=== PATIENT | female | born 2000 | race Caucasian/White ===

== ENCOUNTER 2024-01-27 18:02 | Outpatient (REF) | payer MEDICAID, SELFPAY ==
[2024-01-28 05:52] LABS: CT PCR NOT DETECTED (Not Detect.); NG PCR NOT DETECTED (Not Detect.)
[2024-01-28 11:16] LABS: Bacterial Vaginosis PCR POSITIVE (Negative); Candida Group PCR NOT DETECTED (Not Detect); Candida glab krusei PCR DETECTED (Not Detect); Trichomonas vaginalis PCR NOT DETECTED (Not Detect)
== END 2024-01-27 18:03 | disposition home or self-care (01) ==
LOC: HO.HHCLNP 18:02
PROVIDERS: Visit Provider Registered Nurse
DX: R30.0 Dysuria (principal)
CPT/HCPCS: 0352U; 87086; 87491; 87591

== ENCOUNTER 2024-09-02 09:09 | Outpatient (REF) | payer MEDICAID, SELFPAY ==
--- NOTE | ~2024-09-02 | US_ITS ---
EXAMINATION: US ABDOMEN HISTORY: RUQ pain TECHNIQUE: Real-time grayscale ultrasound imaging of the abdomen was performed and images were reviewed. COMPARISON: Correlation is made with an unenhanced CT of the abdomen dated 03/15/2014. FINDINGS: Liver: The right lobe of the liver measures 13.5 cm in size. The left lobe of the liver measures 9.8 cm in size. The liver demonstrates normal homogeneous echotexture. No focal mass or intrahepatic biliary ductal dilatation is identified. There is normal hepatopedal flow in the portal vein. Gallbladder and biliary tree: Multiple shadowing calculi are noted in the gallbladder. There is no wall thickening or pericholecystic fluid. There is no sonographic Bermudez sign. The common bile duct is normal in caliber measuring 3 mm. Kidneys: The right kidney measures 10.8 cm in length. The left kidney is 9.4 cm in length. There is limited visualization of the lower pole of the left kidney. The kidneys are otherwise unremarkable, without evidence of masses, hydronephrosis, or calculi. Pancreas: The pancreatic head, neck, and body are unremarkable. The pancreatic tail is obscured by bowel gas. Spleen: The spleen is normal in size and contour, measuring 8.1 cm in length. Abdominal aorta and inferior vena cava: The visualized portions of the abdominal aorta and inferior vena cava are normal in caliber. There is no free fluid in the abdomen. US/US abdomen complete IMPRESSION: Cholelithiasis without evidence of acute cholecystitis. Electronically signed by: James Mendoza MD 09/02/2024 10:14 AM EDT
--- OUTSIDE RECORDS SUMMARY | 2024-09-02 09:50 | XMS_ITS | Clinical Summary ---
Author Organization [employer] [facility] Address [address] [place] [address] Care Team Providers Care Manager Graphic Name Role Phone Kota Noemí DAVIES Primary Care Provider [phone] Allergies Active Allergy Reactions Criticality Noted Date Comments Penicillins Hives 08/04/2022 Medications levonorgestrel-eth inyl estradiol (Aviane) 0.1-20 MG-MCG tabletIndications: Encounter for initial prescription of contraceptive pills Take 1 tablet by mouth Once per day. 28 tablet 12 4 01/27/20 25 Active ibuprofen 600 MG tabletIndications: Crampy pain associated with menses Take 1 tablet (600 mg) by mouth every 6 (six) hours if needed for mild pain. 30 tablet 3 5 Active Active Problems No known active problems Encounters Date Type Department Care Team Description 08/12/2024 Population Health Risk Score [facility] ([facility]) Department [address] [id number] Provider, Population Health Generic 07/13/2024 Orders Only [facility] [address] [place] [address] Noemí Escudero FNP Right upper quadrant abdominal pain (Primary Dx) 07/12/2024 Telephone the grafter Information Management [address] [place] [address] Noemí Escudero FNP 07/08/2024 11:00 AM EST Office Visit [facility] [address] [place] [address] [place], Noemí, LAB CLERK Right upper quadrant abdominal pain (Primary Dx); Crampy pain associated with menses; Proctitis 07/08/2024 Travel 07/01/2024 Telephone [facility] [address] [place] [address] [phone] [place], NoemíKEKE chart prep from Last 3 Months Immunizations Name Administration Dates Next Due Influenza, seasonal, injectable, preservative fr ee 05/02/2022 Social History Tobacco Use Types Packs/Day Years Used Date Smoking Tobacco: Never Smokeless Tobacco: Never Tobacco Cessation:Counseling Given: Not Answered Depression Answer Date Recorded Patient Health Questionnaire-9 Score 0 01/27/2024 Patient Health Questionnaire-9 Score 0 01/27/2024 Last PHQ-9: Questionnaire Data Not on file 0 01/27/2024 Depression Answer Date Recorded Patient Health Questionnaire-2 Score 0 01/27/2024 Comments No Sex and Gender Information Value Date Recorded Sex Assigned at Female 03/31/2022 10:16 AM EDT Legal Sex Female 10:16 AM EDT Gender Identity Female 03/31/2022 10:16 AM EDT Sexual Orientation Don't know 03/31/2022 10 :16 AM EDT Last Filed Vital Signs Vital Sign Reading Time Taken Comments Blood Pressure 128/70 07/08/2024 11:13 AM EST Pulse 92 07/08/2024 11:13 AM EST Temperature 36.6 ??C (97.8 ??F) 07/08/2024 11:[address] Respiratory Rate 18 07/08/2024 11:13 AM EST Oxygen Saturation 98% 08/04/2022 4:48 PM EST Inhaled Oxygen Concentration - - Weight 67 kg (147 lb 12.8 oz) 07/08/2024 11:13 A M EST Height 167.6 cm (5' 6 ) 07/08/2024 11:13 AM EST Body Mass Index 23.86 07/08/2024 11:13 AM EST Plan of Treatment Health Maintenance Due Date Last Done Comments SDOH Screening 1998 Family Planning (PISQ) 2013 HPV Vaccines (1 - 3-dose series) 2013 DTaP/Tdap/Td Vaccines (7 - Td or Tdap) 02/18/2021 02/18/2011, 02/28/2004, 07/18/2000, Additional history exists COVID-19 Vaccine (2 - season) 2024 01/03/2021 Influenza Vaccine (#1) 2024 , 07/06/2017, 06/13/2009 Pap Smear 09/04/2024 09/04/2021 Alcohol/Substance Use Screening 01/26/2025 01/27/2024 Depression Screening 01/26/2025 01/27/2024, 01/27/20 24 Tobacco Screening 07/11/2025 07/11/2024 Zoster Vaccines (1 of 2) 2048 RSV Patients and Patients Aged 60 years or older (1 - 1-dose 75+ series) 2073 Hepatitis B Vaccines Completed 04/04/1999, 01/30/1999, 1998 HIB Vaccines Completed 06/06/2000, 08/1998, 01/30/1999, Additional history exists IPV Vaccines Completed 2002, 08/1998, 01/30/1999, Additional history exists Hepatitis A Vaccines Completed 02/18/2011, 06/13/19 10 HIV Screening Completed 09/06/2021 Hepatitis C Screening Completed 09/06/2021 Meningococcal Vaccine Aged Out No radames jamilah eligible based on patient's age to complete this topic Pneumococcal Vaccine: Pediatrics (0 to 5 Years) and At-Risk Patients (6 to 49) Years) Aged Out No longer eligible based on patient's age to complete this topic RSV under 20 months Aged Out No longe r eligible based on patient's age to complete this topic Rotavirus Vaccines Aged Out No longer eligible based on patient's age to complete this topic Procedures Procedure Name Priority Date/Time Associated Diagnosis Comments ZZZ HISTORICAL HEPATITIS C AB W/REFL TO HCV RNA, QN, PCR Routine 09/06/2021 1:17 PM EDT HIV 1/2 ANTIGEN/ANTIBODY, FOURTH GENERATION W/RFL Routine 09/06/2021 1:17 PM EDT [facility] PAP Routine 09/04/2021 10:38 AM EDT from Last 3 Months or Most Recently Relevant to Health Maintenance Results * HEPATITIS C AB W/REFL TO HCV RNA, QN, PCR (09/06/2021 1:17 PM EDT) HEPATITIS C ANTIBODY NON-REACT DEBORAH NON-REACT DEBORAH [facility] INDEX 0.02 <1.00 [facility] Comment: ?? HCV antibody was non-reactive. There is no laboratory ?? evidence of HCV infection. ?? In most cases, no further action is required. However, if recent HCV exposure is suspected, a test for HCV RNA (test code 99971) is suggested. ?? For additional information please refer to http://MymCart.Rakuten/faq/OKR95t4 (This link is being provided for informational/ educational purposes only.) ?? 09/06/2021 1:17 PM EDT Julia Briseno CNM HISTORICAL/NON ORDERABLE LABS Final Result [facility] [address] * HIV 1/2 ANTIGEN/ANTIBODY,FOURTH GENERATION W/RFL (09/06/2021 1:17 PM EDT) HIV-1/2 ANTIGEN AND ANTIBODIES, 4TH GENERATION W/ REFLEX NON-REACT DEBORAH NON-REACT DEBORAH [facility] Comment: HIV-1 antigen and HIV-1/HIV-2 antibodies were not detected. There is no laboratory evidence of HIV infection. ?? PLEASE NOTE: This information has been disclosed to you from records whose confidentiality may be protected by state law. ??If your state requires such protection, then the state law prohibits you from making any further disclosure of the information without the specific written consent of the person to whom it pertains, or as otherwise permitted by law. A general authorization for the release of medical or other information is NOT sufficient for this purpose. ? For additional information please refer to http://MymCart.Rakuten/faq/MFA101 (This link is being provided for informational/ educational purposes only.) ? The performance of this assay has not been clinically validated in patients less than 2 years old. ?? 09/06/2021 1:17 PM EDT Julia MOHAMUD LAB BLOOD ORDERABLES Elma l Result Performing Organization Address [facility] Co de Phone Number [facility] [address] * THINPREP TIS PAP (09/04/2021 10:38 AM EDT) Clinical Information: None given [facility] COMMENT SEE COMMENT [facility] Comment: EXPLANATORY NOTE: ? The Pap is a screening test for cervical cancer. It is ?? not a diagnostic test and is subject to false negative ?? and false positive results. It is most reliable when a ?? satisfactory sample, regularly obtained, is submitted ?? with relevant clinical findings and history, and when ?? the Pap result is evaluated along with historic and ?? current clinical information. ?? COMMENT: This Pap test has been evaluated with computer assisted technology. [email or web address] [employer] Manager : SEE COMMENT [facility] Comment: JULIO C JENNINGS(ASCP) CT screening location: [address] ??[id number] Interpretation/R esult: Negative for intraepithelial lesion or malignancy. [email or web address] LMP: 08/28/21 [facility] Prev. BX: NONE GIVEN [facility] Prev. PAP: NONE GIVEN [facility] SOURCE: None given [facility] Statement Of Adequacy: SEE COMMENT [facility] Comment: Satisfactory for evaluation. Endocervical/transformation zone component present. 09/04/2021 10:3 8 AM EDT Julia MOHAMUD LAB PATHOLOGY ORDERABLES Final Result Performing Organization Address [facility] Co de Phone Number [facility] [address] from Last 3 Months or Most Recently Relevant to Health Maintenance Insurance [facility] C[facility] Care Teams Manager Graphic Relationship Specialty Start Date End Date Noemí Escudero FNP [address] [place] [address] PCP - General Family Medicine 02/27/21
--- OUTSIDE RECORDS SUMMARY | 2024-09-02 09:50 | XMS_ITS | Clinical Summary ---
Author Organization [facility] Address [address] [place] [phone] Phone Care Team Providers Care Spa Attendant Name Role Phone Physician, No Pcp Primary Care Provider Unavaila ble Allergies Active Allergy Reactions Criticality Noted Date Comments Penicillins Rash 04/23/2024 Medications No known medications Active Problems No known active problems Surgical History Surgery Date Site/Laterality Comments ECTOPIC SURGERY Social History Tobacco Use Types Packs/Day Years Used Date Smoking Tobacco: Never Smokeless Tobacco: Never Alcohol Use Standard Drinks/Week Comments Not Currently 0 (1 standard drink = 0.6 oz pur e alcohol) Comments Unknown Sex and Gender Information Value Date Recorded Sex Assigned at Female 04/23/2024 7:59 PM EST Legal Sex Female 2:13 PM EST Gender Identity Female 04/23/2024 7:59 PM EST Sexual Orientation Straight 04/23/2024 7: 59 PM EST Obstetrics History Last Filed Vital Signs Vital Sign Reading Time Taken Comments Blood Pressure 119/74 04/23/2024 11:44 PM EST Pulse 84 04/23/2024 11:44 PM EST Temperature 36.9 ??C (98.4 ??F) 04/23/2024 11:[address] Respiratory Rate 18 04/23/2024 11:48 PM EST Oxygen Saturation 99% 04/23/2024 11:44 PM EST Inhaled Oxygen Concentration - - Weight 63 kg (139 lb) 04/23/2024 5:32 PM EST Height 162.6 cm (5' 4 ) 04/23/2024 5:32 PM EST Body Mass Index 23.86 04/23/2024 5:32 PM EST Plan of Treatment Health Maintenance Due Date Last Done Comments HPV Vaccines (1 - 3-dose series) 2013 DTaP,Tdap,and Td Vaccines (1 - Tdap) 2017 Hepatitis B Vaccines (1 of 3 - 19+ 3-dose series) 2017 Cervical Cancer Screening: P ap Smear 09/27/2019 Hepatitis C Screening 04/30/2022 Social Influencers of Health Screening 04/30/2022 COVID-19 Vaccine (1 - 2023-2 5 season) 2024 Influenza Vaccine (#1) 2024 05/02/2022 Depression Screening 01/26/2025 01/27/2024 HIV Screening Completed 09/06/2021 Gonorrhea/Chlamydia Screening Discontinued 01/27/2024 HIB Vaccines Aged Out No longer eligi ble based on patient's age to complete this topic Hepatitis A Vaccines Aged Out No long er eligible based on patient's age to complete this topic IPV Vaccines Aged Out No longer eligi ble based on patient's age to complete this topic MMR Vaccines Aged Out No longer eligi ble based on patient's age to complete this topic Meningococcal ACWY Vaccine Aged Out N o longer eligible based on patient's age to complete this topic Meningococcal B Vacine Aged Out No lo nger eligible based on patient's age to complete this topic Pneumococcal Vaccine: Pediat rics (0 to 5 Years) and At-Risk Patients (6 to 64 Years) Aged Out No longer eligi ble based on patient's age to complete this topic RSV Immunization Patients Un desmond 20 months Aged Out No longer eligible b ased on patient's age to complete this topic Varicella Vaccines Aged Out No longer eligible based on patient's age to complete this topic Insurance [place] - [place] Care Teams Spa Attendant Relationship Specialty Start Date End Date Physician, No Pcp PCP - General 04/23/24
== END 2024-09-02 09:10 | disposition home or self-care (01) ==
LOC: HO.US 09:09
PROVIDERS: PCP Nurse Practitioner Family; Visit Provider Registered Nurse
DX: R10.11 Right upper quadrant pain (principal)
CPT/HCPCS: 76700

== ENCOUNTER → 2024-09-02 09:11 | Outpatient (BNV) | payer MEDICAID, SELFPAY | PROVIDERS: PCP Nurse Practitioner Family; Visit Provider Radiology Diagnostic Radiology | DX: K80.20 Calculus of gallbladder without cholecystitis without obstruction (principal) | CPT/HCPCS: 76700 ==